=== PATIENT | male | born 1975 | race Caucasian/White ===

== ENCOUNTER 2023-06-08 09:54 | Emergency (ER) | payer BC, SELFPAY ==
[2023-06-08 10:03] VITALS: BP 124/68; BMI 20.4
--- NOTE | 2023-06-08 10:19 | ED.GENMED ---
History of Present Illness
General
Chief Complaint: Psychiatric Problem
Source: patient
Time Seen by Provider: 06/08/23 10:13
Travel History
Have you had any contact with someone who has COVID-19?: No
Do you have any symptoms of coronavirus? Fever > 100 degrees, chills, cough, shortness of breath, sore throat, loss of taste or smell, muscle aches, or headache?: No
History of Present Illness
History of Present Illness:
47-year-old male brought to the emergency room by police based on a 302 petition filed by the patient's father. Patient missed having a 'blowout' with his father. Other than that he does not expand on the events that resulted in his being 302.
Patient denies suicidal homicidal ideations. Patient denies any history of psychiatric disorders. Does not take any prescription medications. Patient denies previous hospitalizations for psychiatric illness. He admits to smoking cigarettes on a
daily basis and occasional use of alcohol and marijuana. He has rarely used other illicit drugs. He believes he tried acid couple weeks ago. Patient denies any fever, chills, cough, headache, chest pain or abdominal pain.
Past History
Past History
ED Past Medical History: None
ED Past Surgical History: None
Social History
Personal:
Living: with family
Employment: Employed
Phy Exam
Physical Exam
Physical Exam:
General: Awake, Alert, Oriented X3. No acute distress.
Vitals: unremarkable
Head: Atraumatic
Eyes: Pupils equal, EOMI
Throat: Airway intact, no exudates
Neck: Trachea midline
Lungs: Clear and equal b/l
Heart: Regular rate, no murmurs
Abd: Soft, Nontender, No pulsatile mass
Neuro: Nonfocal
Skin: Warm, dry, no rash
Extremities: pulses equal b/l, no edema
Course
Orders/Labs/Results
Orders:
Orders
06/08/23 10:52
Urine Drug Abuse Screen Urgent
Date Specimen was Collected: 06/08/23
Time Specimen was Collected: 10:29
Vital Signs
Initial and Last Documented VS:
Initial Vital Signs
Temp Pulse Resp BP Pulse Ox
97.4 F 79 18 124/68 98
06/08/23 10:03 06/08/23 10:03 06/08/23 10:03 06/08/23 10:03 06/08/23 10:03
Last Documented Vital Signs
Temp Pulse Resp BP Pulse Ox
97.4 F 79 18 124/68 98
06/08/23 10:03 06/08/23 10:03 06/08/23 10:03 06/08/23 10:03 06/08/23 10:03
MDM/Problems Addressed
Differential Diagnosis Includes:
bipolar with cosme, acute psychosis, adverse drug effect (elicit)
MDM/Problems Addressed:
302 up held by psychiatrist. UDS neg. Suspect bipolar dz. Bed placement in progress. Pt currently cooperative.
*Pulse Oximetry
Patient hypoxic: no
*Critical Care Note
Total Time (30-74mins, 75-104mins- exclusive of procedures): Not Applicable
ED Attending Note
-
Portions of this chart may have been created with voice recognition software.� Occasional wrong word or��sound alike� substitutions may have occurred due to the inherent limitations of voice recognition software.
Discharge Plan
Departure
Patient Disposition: Psych Facility
Date of Disposition: 06/08/23
Time of Disposition: 12:39
Patient Status:: 302
Discharge Problem:
Acute psychosis
Prescriptions:
No Action
ciprofloxacin HCl [Ciloxan] 5 ML drops
1 drp OPHTHALMIC .Q4H WHILE AWAKE Qty: 5 0RF
Referrals:
NONE,* [Family Provider] -
Interventions
Interventions:
*Risk Screen - Suicide Last Done: 06/08/23 10:03
*General Assessment Last Done: 06/08/23 10:03
*Neglect/Abuse Screening Last Done: 06/08/23 10:03
*ED COVID-19 Vaccine History Last Done: 06/08/23 10:03
Discharge Date and Time
Print Language: BELARUSIAN
[2023-06-08 11:22] LABS: Amphetamines Negative (Negative); Barbiturates Negative (Negative); Benzodiazepines Negative (Negative); Buprenorphine Negative (Negative); Cocaine Negative (Negative); Marijuana Negative (Negative); Methadone Negative (Negative); Methamphetamines Negative (Negative); Opiates Negative (Negative); Phencyclidine Negative (Negative); Tricyclic Antidepressants Negative (Negative)
--- NOTE | 2023-06-08 12:41 | CON.MD ---
Consultation - Medical
-
patient seen chart reviewed. patient is a 47 year old male who was admitted on a 302 petition filed by his father who alleges that the patient's behavior had become out of control. the patient does not disagree with the bulk of the 302 allegations
stating he has been on an 'emotional roller coaster'. the patient reports his moods are up and down. he does get messages from the tv. he believes he is being watched and that someone has hacked his phone. he does admit he got in his father's
face but denied that he head butted him or tried to break his fingers. the patient does think he needs help and is not opposed to going in the hospital. his appetite is good. sleep is poor with difficulty falling and staying asleep. his thoughts
race. he does hear voices from time to time but would not tell me what they say. he denies that he wants to hurt himself or others. he takes no psych meds.
past medical hx patient states that he is healthy and has no ongonig medical illnesses. uds is clean. vital signs are normal
past psych hx patient denies having been hospitalized psychiatrically or having been prescribed psychotropic medications.
substance abuse patient does admit to having used drugs in the past but not lately. he would not be specific as to what. he does 'occasionally ' use mj and etoh. his uds is clean.
fh he believes everyone in his family has mental illness
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 from has three kids whom he does not see. he is one of seven kids
mse alert ox3 cooperative pressured speech at time rather vague about the details of his life. + paranoia and ideas of reference mood is not depressed or angry affect labile denies si hi aver intelligence insight judgment lacking
dx unspecified psychosis
plan will uphold 302 patient . patient is not disagreeing w need for hospitalization. greenhouse worker left message for father who filed to call us back to obtain further information
--- NOTE | 2023-06-08 15:31 | EDRN ---
Pt has been accepted to [facility] and will be transferred to by ambulance at 1900. Pt has been calm and cooperative for the time he has been here. Pt provided lunch tray of his choice and he is resting comfortably with 1:1 at bedside.
[2023-06-08] MEDS: NICODERM TRANSDERMAL 14 MG TRANSDERM (17:42)
[2023-06-08 19:40] VITALS: BP 141/77
== END 2023-06-08 19:45 ==
LOC: EMR 09:54
PROVIDERS: EMERGENCY PHYSICIAN Emergency Medicine; OTHER PHYSICIAN Psychiatry & Neurology Psychiatry
DX: F23 Brief psychotic disorder (principal); F17.210 Nicotine dependence, cigarettes, uncomplicated
CPT/HCPCS: 99285; 80306